=== PATIENT | male | born 1940 | race Caucasian/White ===

== ENCOUNTER 2024-05-26 11:38 | Inpatient (IN) | payer OTHER, MEDICARE ==
[~2024-05-26] VITALS: Ht 177.8 cm; Wt 98.5 kg
[2024-05-26] VITALS (12 sets, daily range): BP systolic 75–118; BP diastolic 43–69
[~2024-05-26 11:38] MED LIST: OMNICEF300 MG PO
[2024-05-26] MEDS ORDERED: SODIUM CHLORIDE 0.9% 1,000 ML IV STA ×2 (12:32→13:29)
[2024-05-26 12:57] LABS: BASO% 0.3 % (0-3); HEMATOCRIT 39.6 % (39.0-50.0); HEMOGLOBIN 13.7 g/dl (14.0-18.0); IMMATURE GRANULOCYTES 0.4 % (0.0-5.0); LYMPH% 8.7 % (15-41); MEAN CELL VOLUME 90.6 fL CALC (80.0-100.0); MEAN CORPUSCULAR HGB 31.4 pG CALC (26.0-32.0); MEAN CORPUSCULAR HGB CONC 34.6 g/dL CAL (32.0-36.0); MONO% 7.5 % (2-13); NEUT# 10.7 thou/uL (1.82-7.42); NEUT% 82.1 % (42-76); RED BLOOD COUNT 4.37 mill/uL (4.70-6.10); RED CELL DISTRI WIDTH 13.6 % (11.5-15.5)
[2024-05-26 13:23] LABS: ALBUMIN 4.3 g/dL (3.2-5.0); BILIRUBIN, TOTAL 0.9 mg/dL (0.2-1.3); TOTAL PROTEIN 6.8 g/dL (6.3-8.2)
[2024-05-26 13:24] LABS: POTASSIUM 3.1 mmol/l (3.5-5.1)
[2024-05-26] MEDS ORDERED: NORVASC PO (15:08)
[2024-05-26] MEDS ORDERED: LYRICA75 MG PO (15:09)
[2024-05-26] MEDS ORDERED: HYDROCHLOROT25 MG PO (15:09)
[2024-05-26] MEDS ORDERED: MULTI VIT PO (15:10)
[2024-05-26] MEDS ORDERED: LANTUS100 UNIT SC ×2 (15:11→15:17)
[2024-05-26] MEDS ORDERED: JARDIANCE25 MG PO (15:12)
[2024-05-26] MEDS ORDERED: OZEMPIC2 MG IM (15:13)
[2024-05-26] MEDS ORDERED: FINASTERIDE5 MG PO (15:14)
[2024-05-26] MEDS ORDERED: LISINOPRIL40 MG PO (15:14)
[2024-05-26] MEDS ORDERED: TERAZOSIN2 MG PO (15:15)
[2024-05-26] MEDS ORDERED: LYRICA150 MG PO ×2 (15:16)
[2024-05-26] MEDS ORDERED: ONDANSETRON HCl 4 MG/2 ML SDV IV PRN (15:25)
[2024-05-26] MEDS ORDERED: ACETAMINOPHEN 325 MG/TAB PO PRN (15:25)
[2024-05-26] MEDS ORDERED: MAGNESIUM HYDROXIDE 30 ML UDC PO PRN (15:25)
[2024-05-26] MEDS ORDERED: SODIUM CHLORIDE 0.9% 1,000 ML IV PRN (15:25)
[2024-05-26] MEDS ORDERED: POTASSIUM CHLORIDE 20 MEQ/PKT POWDER PO ONE (15:25)
[2024-05-26] MEDS ORDERED: INSULIN LISPRO 100 UNITS/ML ML SC SCH (17:00)
[2024-05-26] MEDS ORDERED: Heparin SODIUM (Porcine) 5,000 UNITS/ML SDV SC SCH (22:00)
[2024-05-27 03:55] VITALS: BP 141/72
[2024-05-27 05:35] LABS: BASO% 0.4 % (0-3); EOS% 1.9 % (0-8); HEMATOCRIT 34.3 % (39.0-50.0); HEMOGLOBIN 12.2 g/dl (14.0-18.0); IMMATURE GRANULOCYTES 0.3 % (0.0-5.0); LYMPH% 13.2 % (15-41); MEAN CELL VOLUME 90.3 fL CALC (80.0-100.0); MEAN CORPUSCULAR HGB 32.1 pG CALC (26.0-32.0); MEAN CORPUSCULAR HGB CONC 35.6 g/dL CAL (32.0-36.0); MONO% 9.3 % (2-13); NEUT# 7.19 thou/uL (1.82-7.42); NEUT% 74.9 % (42-76); RED BLOOD COUNT 3.8 mill/uL (4.70-6.10); RED CELL DISTRI WIDTH 13.7 % (11.5-15.5)
[2024-05-27 06:03] LABS: BILIRUBIN, TOTAL 0.7 mg/dL (0.2-1.3); CREATININE 1.4 mg/dL (0.7-1.3); MAGNESIUM 1.3 mg/dL (1.6-2.3); POTASSIUM 2.9 mmol/l (3.5-5.1)
[2024-05-27 06:06] LABS: ALBUMIN 3.2 g/dL (3.2-5.0); TOTAL PROTEIN 5.4 g/dL (6.3-8.2)
[2024-05-27 07:37] VITALS: BP 134/63
[2024-05-27] MEDS ORDERED: POTASSIUM CHLORIDE 20 MEQ/TAB PO SCH (09:00)
[2024-05-27] MEDS ORDERED: MAGNESIUM SULFATE HEPTAHYDRATE 100 ML IV SCH (10:00)
[2024-05-27] MEDS ORDERED: MUPIROCIN (PSEUDOMONAS FLUORES 22 GM/TUBE TUBE TOP SCH (11:00)
[2024-05-27] MEDS ORDERED: VANCOMYCIN HCL 125 MG/CAP PO SCH (12:00)
[2024-05-27 16:25] VITALS: BP 140/76
[2024-05-27 18:30] VITALS: BP 158/76
[2024-05-27] MEDS ORDERED: metroNIDAZOLE 500 MG/TAB PO SCH (21:00)
[2024-05-27] MEDS ORDERED: CIPROFLOXACIN 250 MG/TAB PO SCH (21:00)
[2024-05-28 04:24] VITALS: BP 144/63
[2024-05-28 06:18] LABS: BASO% 0.7 % (0-3); EOS% 2.4 % (0-8); HEMATOCRIT 33.6 % (39.0-50.0); HEMOGLOBIN 11.9 g/dl (14.0-18.0); IMMATURE GRANULOCYTES 0.8 % (0.0-5.0); LYMPH% 16.5 % (15-41); MEAN CELL VOLUME 89.1 fL CALC (80.0-100.0); MEAN CORPUSCULAR HGB 31.6 pG CALC (26.0-32.0); MEAN CORPUSCULAR HGB CONC 35.4 g/dL CAL (32.0-36.0); MONO% 8.8 % (2-13); NEUT# 5.22 thou/uL (1.82-7.42); NEUT% 70.8 % (42-76); RED BLOOD COUNT 3.77 mill/uL (4.70-6.10); RED CELL DISTRI WIDTH 13.6 % (11.5-15.5)
[2024-05-28 06:24] LABS: ALBUMIN 3.3 g/dL (3.2-5.0); BILIRUBIN, TOTAL 0.6 mg/dL (0.2-1.3); CREATININE 1.1 mg/dL (0.7-1.3); POTASSIUM 2.9 mmol/l (3.5-5.1); TOTAL PROTEIN 5.5 g/dL (6.3-8.2)
[2024-05-28 06:25] LABS: MAGNESIUM 1.8 mg/dL (1.6-2.3)
[2024-05-28 07:00] VITALS: BP 160/79
[2024-05-28] MEDS ORDERED: amLODIPine BESYLATE 5 MG/TAB PO SCH (14:20)
[2024-05-28] MEDS ORDERED: LISINOPRIL 20 MG/TAB PO SCH (14:21)
[2024-05-28] MEDS ORDERED: hydrALAZINE HCL 20 MG/ML VIAL(1 ML) IV PRN (14:25)
[2024-05-28] MEDS ORDERED: POTASSIUM CHLORIDE 20MEQ 100 ML IV SCH (16:00)
[2024-05-28 18:57] VITALS: BP 166/75
[2024-05-28] MEDS ORDERED: POTASSIUM CHLORIDE 20 MEQ/TAB PO SCH (21:00)
[2024-05-28] MEDS ORDERED: ENOXAPARIN SODIUM 40 MG/0.4 ML SYR SC SCH (21:00)
[2024-05-29 05:10] VITALS: BP 155/73
[2024-05-29 05:54] LABS: BASO% 0.5 % (0-3); EOS% 2.2 % (0-8); HEMATOCRIT 37.7 % (39.0-50.0); HEMOGLOBIN 13.1 g/dl (14.0-18.0); IMMATURE GRANULOCYTES 1.5 % (0.0-5.0); LYMPH% 14.2 % (15-41); MEAN CELL VOLUME 89.5 fL CALC (80.0-100.0); MEAN CORPUSCULAR HGB 31.1 pG CALC (26.0-32.0); MEAN CORPUSCULAR HGB CONC 34.7 g/dL CAL (32.0-36.0); MONO% 8.3 % (2-13); NEUT# 6.71 thou/uL (1.82-7.42); NEUT% 73.3 % (42-76); RED BLOOD COUNT 4.21 mill/uL (4.70-6.10); RED CELL DISTRI WIDTH 13.4 % (11.5-15.5)
[2024-05-29 06:01] LABS: ALBUMIN 3.8 g/dL (3.2-5.0); BILIRUBIN, TOTAL 0.8 mg/dL (0.2-1.3); MAGNESIUM 1.6 mg/dL (1.6-2.3); POTASSIUM 2.8 mmol/l (3.5-5.1)
[2024-05-29 07:35] VITALS: BP 188/76
[2024-05-29] MEDS ORDERED: PREGABALIN 75 MG/CAP PO SCH (09:00)
[2024-05-29] MEDS ORDERED: PREGABALIN 50 MG/CAP PO SCH (09:00)
[2024-05-29 16:10] VITALS: BP 153/77
[2024-05-29 18:36] VITALS: BP 163/77
[2024-05-29] MEDS ORDERED: POTASSIUM CHLORIDE 20 MEQ/TAB PO SCH (21:00)
[2024-05-30 06:03] LABS: BASO% 0.6 % (0-3); EOS% 1.7 % (0-8); HEMATOCRIT 37.2 % (39.0-50.0); HEMOGLOBIN 13.1 g/dl (14.0-18.0); IMMATURE GRANULOCYTES 1.1 % (0.0-5.0); LYMPH% 17.3 % (15-41); MEAN CELL VOLUME 90.7 fL CALC (80.0-100.0); MEAN CORPUSCULAR HGB CONC 35.2 g/dL CAL (32.0-36.0); MONO% 9.2 % (2-13); NEUT# 7.34 thou/uL (1.82-7.42); NEUT% 70.1 % (42-76); RED BLOOD COUNT 4.1 mill/uL (4.70-6.10); RED CELL DISTRI WIDTH 13.5 % (11.5-15.5)
[2024-05-30 06:22] LABS: ALBUMIN 3.4 g/dL (3.2-5.0); BILIRUBIN, TOTAL 0.8 mg/dL (0.2-1.3); CREATININE 1.1 mg/dL (0.7-1.3); MAGNESIUM 1.5 mg/dL (1.6-2.3); POTASSIUM 3.1 mmol/l (3.5-5.1); TOTAL PROTEIN 5.7 g/dL (6.3-8.2)
[2024-05-30 07:25] VITALS: BP 164/76
[2024-05-30 09:01] VITALS: BP 164/76
[2024-05-30] MEDS ORDERED: METRONIDAZOLE500 MG PO (10:27)
[2024-05-30] MEDS ORDERED: CIPROFLOXACIN250 MG PO (10:27)
[2024-05-30] MEDS ORDERED: (None)125 MG PO (10:28)
== END 2024-05-30 11:58 | disposition home or self-care (01) | DRG 372 ==
LOC: ED 11:38 → ED-I 14:50 → ED 15:23 → MS2 15:24
PROVIDERS: Internal Medicine; Nurse Practitioner; Nurse Practitioner Family; ADMIT Internal Medicine; ATTEND Internal Medicine
DX: A04.72 Enterocolitis due to Clostridium difficile, not specified as recurrent (principal); K57.32 Diverticulitis of large intestine without perforation or abscess without bleeding; L97.429 Non-pressure chronic ulcer of left heel and midfoot with unspecified severity; N17.9 Acute kidney failure, unspecified; E11.621 Type 2 diabetes mellitus with foot ulcer; I95.9 Hypotension, unspecified; E87.6 Hypokalemia; E83.42 Hypomagnesemia; D69.6 Thrombocytopenia, unspecified; I10 Essential (primary) hypertension; E11.40 Type 2 diabetes mellitus with diabetic neuropathy, unspecified; I25.2 Old myocardial infarction; Z79.4 Long term (current) use of insulin; Z79.85 Long-term (current) use of injectable non-insulin antidiabetic drugs; Z85.46 Personal history of malignant neoplasm of prostate
CPT/HCPCS: J0744; J1644; J1650; J1815; J1836; J3475; J3480